=== PATIENT | male | born 1990 | race Caucasian/White ===

== ENCOUNTER 2021-06-23 22:11 | Emergency (ER) | payer OTHER ==
[~2021-06-23] VITALS: Ht 175.2 cm; Wt 92.1 kg
== END 2021-06-24 01:32 | disposition home or self-care (01) ==
LOC: ED 22:11 → EDBD 22:30 → ED 06-24 01:32
DX: S86.912A Strain of unspecified muscle(s) and tendon(s) at lower leg level, left leg, initial encounter (principal); Z88.2 Allergy status to sulfonamides; X50.1XXA Overexertion from prolonged static or awkward postures, initial encounter; Y93.89 Activity, other specified; Y92.89 Other specified places as the place of occurrence of the external cause; Y99.8 Other external cause status